=== PATIENT | female | born 1945 | race Caucasian/White ===

== ENCOUNTER 2021-02-05 23:00 | Inpatient (IN) | payer OTHER ==
[~2021-02-05] VITALS: Ht 167.6 cm; Wt 88.5 kg
[2021-02-05] MEDS ORDERED: RAPID SEQUENCE KIT [RSI] 1 EACH KIT MISC ONE (23:07)
[2021-02-05 23:25] LABS: BASOPHILS % (AUTO) 1.1 % (0.0-2.0); HEMATOCRIT 37.2 % (36-46); HEMOGLOBIN 12.3 g/dL (12.0-16.0); LYMPHOCYTES # (AUTO) 1.4 K/uL (1.0-4.8); LYMPHOCYTES % (AUTO) 22.2 % (22.0-44.0); MEAN CORPUSCULAR HEMOGLOBIN 35.3 pg (26.0-34.0); MEAN CORPUSCULAR HGB CONC 33.2 G/dL (31.0-37.0); MEAN CORPUSCULAR VOLUME 106 fL (80-100); MONOCYTES # (AUTO) 0.8 K/uL (0.1-1.0); MONOCYTES % (AUTO) 11.9 % (2.0-9.0); NEUTROPHILS # (AUTO) 3.9 K/uL (1.8-7.7); NEUTROPHILS % (AUTO) 61.8 % (40.0-70.0); PLATELET COUNT (AUTO) 603 K/uL (150-450); RED CELL DISTRIBUTION WIDTH 17.3 % (11.5-14.5)
[2021-02-05 23:28] LABS: CREATININE 2.03 mg/dL (0.60-1.30); POTASSIUM 3.5 mmol/L (3.5-5.1)
[2021-02-05] MEDS ORDERED: PROPOFOL 1000 MG/ISO-OSM 100 ML IV PRN (23:30)
[2021-02-05] MEDS ORDERED: PIPERACILLIN/TAZO 3.375 GM/D5W 50 ML IV ONE (23:30)
[2021-02-05 23:34] LABS: ALBUMIN 3.7 g/dL (3.4-5.0); BILIRUBIN,TOTAL 0.3 mg/dL (0.1-1.0); TOTAL PROTEIN, SERUM 7.4 g/dL (6.4-8.2)
[2021-02-05] MEDS: NiCARDipine HCL 25 MG in SODIUM CHLORIDE 0.9% 240 ML IV PRN (23:34)
[2021-02-05 23:38] LABS: PROTHROMBIN TIME 10.2 SEC (9.4-11.6)
[2021-02-05 23:42] LABS: APPEARANCE,URINE CLOUDY (CLEAR); BILIRUBIN,URINE NEGATIVE (NEGATIVE); GLUCOSE, URINE (UA) 250 mg/dL (NEGATIVE); KETONES,URINE NEGATIVE (NEGATIVE); LEUKOCYTE ESTERASE ,URINE NEGATIVE (NEGATIVE); NITRATE,URINE POSITIVE (NEGATIVE); OCCULT BLOOD,URINE SMALL (NEGATIVE); PH,URINE 6.5 (5.0-8.0); PROTEIN,URINE SEE CONFIRM (NEGATIVE); UROBILINOGEN,URINE 0.2 mg/dL (<=1.0)
[2021-02-05 23:56] LABS: SULFOSALICYLIC ACID,URINE 3+ (Negative)
[2021-02-05 23:57] LABS: BACTERIA,URINE Many /HPF (None Seen); RBC,URINE 0-2 /HPF (0-2); SQUAMOUS EPITHELIAL CELL,UR Rare /LPF (None Seen)
[2021-02-06] MEDS ORDERED: IOHEXOL 350 MG/ML 75 ML VIAL ONE (00:19)
[2021-02-06] MEDS ORDERED: SODIUM CHLORIDE 0.9% 100 ML ONE (00:20)
[2021-02-06 00:28] LABS: ABG A-A DIFF O2 513.1 mmHg (10-20.0); ABG BASE EXCESS -1.7 mmol/L (-2.0-3.0); ABG CARBOXYHEMOGLOBIN 0.1 % (0.0-1.5); ABG METHEMOGLOBIN 0.2 % (0.0-1.5); ABG OXYGEN CONTENT 17.6 mL/dL (15.0-23.0); ABG OXYGEN SATURATION 98.6 % (95.0-98.0); ABG OXYHEMOGLOBIN 98.3 % (94.0-100.0); ABG PCO2 44 mmHg (35-45); ABG PH 7.354 (7.35-7.450); ABG TOTAL HEMOGLOBIN 12.5 G/dL (12.0-18.0); PO2, ARTERIAL BG 157.6 mmHg (75.0-83.0); SOURCE, BLOOD GAS ARTERIAL; TEMPERATURE, FAHRENHEIT, BG 97.6 FAHREN (96.0-98.6)
[2021-02-06 00:29] LABS: O2 DEVICE,BLOOD GAS VENTILATOR (ROOM AIR); PEEP,BG 5 cm H2O; SITE, BLOOD GAS RT RADIAL; VT, ABG 450 ml
[2021-02-06 00:30] LABS: SPONTANEOUS VT, BG 638 ml
[2021-02-06] MEDS ORDERED: ONDANSETRON HCL 4 MG/2 ML VIAL IVP PRN ×2 (01:45→06:15)
[2021-02-06] MEDS ORDERED: ACETAMINOPHEN 325 MG TABLET PO PRN (01:45)
[2021-02-06] MEDS ORDERED: NYST15PO3 TP (01:53)
[2021-02-06] MEDS ORDERED: LEVO25TA9 PO (01:53)
[2021-02-06] MEDS ORDERED: AMLO-257 PO (01:53)
[2021-02-06] MEDS ORDERED: ALBU8HFA IH (01:53)
[2021-02-06] MEDS ORDERED: ASPI-1450 PO (01:53)
[2021-02-06] MEDS ORDERED: BUME1TAB34 PO (01:53)
[2021-02-06] MEDS ORDERED: INSNPH SQ (01:53)
[2021-02-06] MEDS ORDERED: FLUT1BLS8 IH (01:53)
[2021-02-06] MEDS ORDERED: METO25 PO (01:53)
[2021-02-06] MEDS ORDERED: INSREG SQ (01:53)
[2021-02-06 02:17] LABS: COVID AG,FIA SOURCE NASOPHARYNGEAL
[2021-02-06] MEDS: NiCARDipine HCL 25 MG in SODIUM CHLORIDE 0.9% 240 ML IV PRN ×7 (02:35→16:36)
[2021-02-06] MEDS ORDERED: BISACODYL 10 MG RECTAL RECTAL SUPPOSITORY PR PRN (06:15)
[2021-02-06] MEDS ORDERED: HYDROCODONE/ACETAMINOPHEN 5-325 MG TABLET PO PRN (06:15)
[2021-02-06] MEDS ORDERED: ZOLPIDEM TARTRATE 5 MG TABLET PO PRN (06:15)
[2021-02-06] MEDS ORDERED: HydrALAZINE HCL 20 MG/ML VIAL IVP PRN (06:15)
[2021-02-06] MEDS ORDERED: MAGNESIUM HYDROXIDE SUSPENSION 30 ML UDCUP PO PRN (06:15)
[2021-02-06 08:00] VITALS: BP 134/84
[2021-02-06] MEDS: PANTOPRAZOLE SODIUM 40 MG DR TABLET PO SCH (08:03)
[2021-02-06] MEDS: AmLODIPine BESYLATE 5 MG TABLET PO SCH (08:03)
[2021-02-06] MEDS: DOCUSATE SODIUM 100 MG CAPSULE PO SCH ×2 (08:03→20:11)
[2021-02-06] MEDS: ACETAMINOPHEN 325 MG TABLET PO PRN ×2 (11:23→20:11)
[2021-02-06 12:00] VITALS: BP 145/56
[2021-02-06] MEDS ORDERED: SUCCINYLCHOLINE CHLORIDE 20 MG/ML 10 ML VIAL IM ONE (14:39)
[2021-02-06] MEDS ORDERED: ETOMIDATE 2 MG/ML 10 ML VIAL IV ONE (14:39)
[2021-02-06] MEDS ORDERED: LIDOCAINE 2% 5 ML JELLY TP ONE (14:39)
[2021-02-06] MEDS: LABETALOL HCL 200 MG in DEXTROSE 5%-WATER 160 ML IV PRN ×2 (15:44→17:30)
[2021-02-06] MEDS: SODIUM CHLORIDE 3% 500 ML IV SCH (15:45)
[2021-02-06 16:00] VITALS: BP 120/45
[2021-02-06 18:28] LABS: CALCIUM, TOTAL 8.3 mg/dL (8.8-10.5); CREATININE 3.52 mg/dL (0.60-1.30); MAGNESIUM 1.7 mg/dL (1.80-2.40); PHOSPHORUS 4.8 mg/dL (2.5-4.9); POTASSIUM 5.4 mmol/L (3.5-5.1)
[2021-02-06 20:00] VITALS: BP 122/49
[2021-02-06 20:05] LABS: GLUCOSE,POINT OF CARE 583 MG/DL (70-110)
[2021-02-06] MEDS: ETHYL ALCOHOL 62% ANTISEPTIC NASAL INHALANT 0.6 ML AMPUL NASAL SCH (20:11)
[2021-02-06] MEDS ORDERED: INSULIN LISPRO 100 UNITS/ML SQ ONE (21:00)
[2021-02-06] MEDS ORDERED: DEXTROSE 50%-WATER 25 GM/50 ML SYRINGE IVP PRN (21:15)
[2021-02-06] MEDS: INSULIN LISPRO 100 UNITS/ML SQ PRN (21:19)
[2021-02-07] VITALS (13 sets, daily range): BP systolic 129–171; BP diastolic 52–111
[2021-02-07] MEDS: INSULIN LISPRO 100 UNITS/ML SQ PRN ×5 (00:21→16:49)
[2021-02-07 04:21] LABS: GLUCOSE,POINT OF CARE 512 MG/DL (70-110)
[2021-02-07] MEDS ORDERED: INSULIN LISPRO 100 UNITS/ML SQ ONE ×2 (04:30)
[2021-02-07] MEDS ORDERED: INSULIN GLARGINE,HUM.REC.ANLOG 100 UNITS/ML SQ ONE ×2 (04:30)
[2021-02-07 05:00] LABS: GLUCOSE,POINT OF CARE 434 MG/DL (70-110)
[2021-02-07] MEDS: NiCARDipine HCL 25 MG in SODIUM CHLORIDE 0.9% 240 ML IV PRN ×2 (05:08→21:47)
[2021-02-07] MEDS: SODIUM CHLORIDE 3% 500 ML IV SCH ×2 (06:45→21:44)
[2021-02-07] MEDS: ETHYL ALCOHOL 62% ANTISEPTIC NASAL INHALANT 0.6 ML AMPUL NASAL SCH ×2 (08:29→21:27)
[2021-02-07] MEDS: DOCUSATE SODIUM 100 MG CAPSULE PO SCH ×2 (08:29→21:27)
[2021-02-07] MEDS: AmLODIPine BESYLATE 5 MG TABLET PO SCH (08:30)
[2021-02-07] MEDS: PANTOPRAZOLE SODIUM 40 MG DR TABLET PO SCH (08:30)
[2021-02-07] MEDS: ACETAMINOPHEN 325 MG TABLET PO PRN ×3 (08:30→20:18)
[2021-02-07] MEDS: MORPHINE SULFATE 2 MG/ML SYRINGE IVP PRN ×3 (08:31→18:10)
[2021-02-07 08:42] LABS: CALCIUM, TOTAL 8.7 mg/dL (8.8-10.5); CREATININE 4.14 mg/dL (0.60-1.30); POTASSIUM 5.8 mmol/L (3.5-5.1)
[2021-02-07 09:42] LABS: BASOPHILS % (AUTO) 0.2 % (0.0-2.0); EOSINOPHILS % (AUTO) 0.4 % (1.0-6.0); HEMATOCRIT 29.2 % (36-46); HEMOGLOBIN 9.3 g/dL (12.0-16.0); LYMPHOCYTES # (AUTO) 0.5 K/uL (1.0-4.8); LYMPHOCYTES % (AUTO) 4.8 % (22.0-44.0); MEAN CORPUSCULAR HEMOGLOBIN 34.8 pg (26.0-34.0); MEAN CORPUSCULAR HGB CONC 31.9 G/dL (31.0-37.0); MEAN CORPUSCULAR VOLUME 109 fL (80-100); MONOCYTES # (AUTO) 1.7 K/uL (0.1-1.0); MONOCYTES % (AUTO) 16.5 % (2.0-9.0); NEUTROPHILS % (AUTO) 78.1 % (40.0-70.0); RED BLOOD CELL COUNT(AUTO) 2.68 MIL/uL (4.00-5.20); RED CELL DISTRIBUTION WIDTH 17.5 % (11.5-14.5)
[2021-02-07 09:58] LABS: PLATELET COUNT (AUTO) 393 K/uL (150-450)
[2021-02-07 13:40] LABS: GLUCOSE,POINT OF CARE 377 MG/DL (70-110)
[2021-02-07 15:57] LABS: ACETONE,BLOOD NEGATIVE (NEGATIVE)
[2021-02-07 15:58] LABS: SODIUM SERUM 148 mmol/L (136-145)
[2021-02-07] MEDS ORDERED: INSULIN LISPRO 100 UNITS/ML SQ PRN (19:30)
[2021-02-07] MEDS ORDERED: LEVOFLOXACIN 750 MG/D5% WATER 150 ML IV ONE (19:30)
[2021-02-07] MEDS ORDERED: SODIUM CHLORIDE 0.9% 250 ML IV ONE (19:51)
[2021-02-07] MEDS ORDERED: INSULIN GLARGINE,HUM.REC.ANLOG 100 UNITS/ML SQ SCH ×2 (21:00)
[2021-02-07 22:10] LABS: GLUCOSE,POINT OF CARE 266 MG/DL (70-110)
[2021-02-07 22:10] LABS: GLUCOSE,POINT OF CARE 281 MG/DL (70-110)
== END 2021-02-07 23:35 | disposition short-term general hospital (02) | DRG 64 ==
LOC: EMS 23:00 → ICU 02-06 04:16
PROVIDERS: ADMIT Internal Medicine; ATTEND Internal Medicine
PROC: 5A1945Z Respiratory Ventilation, 24-96 Consecutive Hours (ICD-10-PCS; principal; 2021-02-06)
PROC: 0BH17EZ Insertion of Endotracheal Airway into Trachea, Via Natural or Artificial Opening (ICD-10-PCS; 2021-02-06)
DX: I61.9 Nontraumatic intracerebral hemorrhage, unspecified (principal); G93.6 Cerebral edema; G93.5 Compression of brain; J96.00 Acute respiratory failure, unspecified whether with hypoxia or hypercapnia; I13.0 Hypertensive heart and chronic kidney disease with heart failure and stage 1 through stage 4 chronic kidney disease, or unspecified chronic kidney disease; I16.1 Hypertensive emergency; E87.0 Hyperosmolality and hypernatremia; G81.94 Hemiplegia, unspecified affecting left nondominant side; N17.9 Acute kidney failure, unspecified; N39.0 Urinary tract infection, site not specified; Z20.822 Contact with and (suspected) exposure to COVID-19; I50.9 Heart failure, unspecified; Z66 Do not resuscitate; I25.10 Atherosclerotic heart disease of native coronary artery without angina pectoris; J45.20 Mild intermittent asthma, uncomplicated; N18.30 Chronic kidney disease, stage 3 unspecified; E03.9 Hypothyroidism, unspecified; E11.22 Type 2 diabetes mellitus with diabetic chronic kidney disease; E11.65 Type 2 diabetes mellitus with hyperglycemia; E66.9 Obesity, unspecified; E78.5 Hyperlipidemia, unspecified; E87.5 Hyperkalemia; Z68.31 Body mass index [BMI] 31.0-31.9, adult; Z88.0 Allergy status to penicillin; Z88.8 Allergy status to other drugs, medicaments and biological substances
CPT/HCPCS: 36600; 51702; 70496; 71045; 72125; 80048; 80053; 81001; 81002; 82009; 82010; 82805; 82962; 83735; 84100; 84295; 84484; 85025; 85610; 85730; 86850; 86900; 86901; 87077; 87081; 87086; 87186; 93005; 94002; 94003; 99291; A9575; G0378; J0330; J0360; J1815; J1956; J2270; J2543; J2704; J3490; J7030; J7050; J7060; 36415-L1; 36415-TC; 70450; 70450-TC